=== PATIENT | female | born 2005 | race Caucasian/White ===

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

== ENCOUNTER 2023-01-24 00:13 | Emergency (ER) | payer OTHER, SELFPAY ==
[2023-01-24 00:14] VITALS: BP 122/80; PULSE 99; RESP 20; TEMP 37; O2SAT 100
--- NOTE | 2023-01-24 00:28 | ED.GENADULT ---
HPI - General Adult General Chief complaint: Unspecified Stated complaint: Consitpation Source: patient Mode of arrival: ambulatory Limitations: no limitations History of Present Illness HPI narrative: 17 year old female presents to the Emergency Department complaining of constipation. Patient states she is 7 weeks and has not had bowel movement for 4 days. Feels like she needs to have BM. Unsure what she can take while . Onset (ago): day(s) (4 days since last BM) Location: abdomen (constipation) Relieving factors: none Exacerbating factors: none Associated symptoms: denies other symptoms Treatments prior to arrival: none Related Data Home Medications Medication Instructions Recorded Confirmed Vitamin Plus Low Iron See Rx Instructions .Route .COMPLEX 01/24/23 01/24/23 Zofran 4 mg PO Q6-8H 01/24/23 01/24/23 Allergies Allergy/AdvReac Type Severity Reaction Status Date / Time No Known Allergies Allergy Verified 01/24/23 00:27 Review of Systems Review of Systems: All systems reviewed & are unremarkable except as noted in HPI and below Constitutional: Constitutional: Reports as per HPI and Reports no additional constitutional complaints Eyes: Eyes: Reports as per HPI and Reports no additional eye complaints ENT: Reports system reviewed and no additional complaints, except as documented and Reports as per HPI Cardiovascular: Cardiovascular: Reports as per HPI and Reports no additional cardiovascular complaints Respiratory: Respiratory: Reports as per HPI and Reports no additional respiratory complaints Gastrointestinal: Gastrointestinal: Reports as per HPI, Reports no additional gastrointestinal complaints, Reports constipation, Denies nausea and Denies vomiting Genitourinary: Genitourinary: Reports no additional female genitourinary complaints and Reports as per HPI Musculoskeletal: Musculoskeletal: Reports no additional musculoskeletal complaints and Reports as per HPI Integumentary/Breasts: Skin/Breast: Reports system reviewed and no additional complaints, except as docu and Reports as per HPI Neurologic: Reports system reviewed and no additional complaints, except as documented and Reports as per HPI Psychiatric: Psychiatric: Reports no additional psychiatric complaints and Reports as per HPI Endocrine: Endocrine: Reports no additional endocrine complaints and Reports as per HPI Hematologic/Lymphatic: Hematologic/Lymphatic: Reports no additional hematologic/lymphatic complaints and Reports as per HPI Allergic/Immunologic: Allergic/Immunologic: Reports no additional allergic/immunologic complaints and Reports as per HPI [facility] Past Medical History Medical History Bipolar 1 disorder Depression Finger pain, left Patellar instability of right knee Pharyngitis URI (upper respiratory infection) Surgical History Surgical History No history of previous surgery Family History Family History Mother No problems noted. Social History Social History Smoking status: Current every day smoker Tobacco type: e-cigarettes/vaping Alcohol intake: never Substance use: never Lack of Transportation: No Lack of Food: Never True Current Housing: I Have Housing Concerned About Future Housing: No Difficulty Paying Gas/Electric Bills: No Difficulty Paying for Meds: No Currently Unemployed: No Education: Grade School Difficulty w/ Childcare or Family Care: No Gender identity (if verbalized by the patient): Female Exam Const: General: cooperative, healthy appearing, comfortable, no acute distress, well developed and alert; No acute distress Nutritional Appearance: average body habitus Orientation/consciousness: patient oriented x3 Limitations:
[2023-01-24] MEDS: SENNA/DOCUSATE SODIUM TABLET 1 TAB PO (00:53)
[2023-01-24 00:58] VITALS: PULSE 78; RESP 18; O2SAT 98
== END 2023-01-24 00:59 | disposition home or self-care (01) ==
PROVIDERS: Emergency Provider Emergency Medicine; PCP Family Medicine
DX: O26.891 Other specified pregnancy related conditions, first trimester (principal); K59.00 Constipation, unspecified; O99.331 Smoking (tobacco) complicating pregnancy, first trimester; F17.210 Nicotine dependence, cigarettes, uncomplicated; Z3A.01 Less than 8 weeks gestation of pregnancy
CPT/HCPCS: 99282; A9270

== ENCOUNTER 2023-01-28 13:12 | Emergency (ER) | payer OTHER, SELFPAY ==
--- NOTE | ~2023-01-28 | US_ITS ---
EXAMINATION: US OB <= 14 weeks fetus DATE: 01/28/2023 14:09 INDICATION: Abdominal cramping during TECHNIQUE: Real-time pelvic ultrasound utilizing both a transvaginal and transabdominal probe was pe rformed. The interpreting radiologist was not present for the study. COMPARISON: 09/03/2022 FINDINGS: The uterus measures 9.8 x 6.2 x 7.1 cm. There is an intrauterine gestational sac. A yolk sac and fet al pole are identified. The crown rump length measures 2.1, which correlates with an estimated gestat ional age of 8 weeks and 5 days. heart motion is identified measuring 180 beats per minute (bpm ) by M-mode Doppler. The right ovary measures 3.3 x 2.9 x 2.7 cm. The left ovary is not visualized. There is no free fluid in the pelvis. IMPRESSION: 1. Single living fetus with heart rate of 180 bpm. 2. Gestational age by ultrasound of 8 weeks 5 day(s) +/- 4 day(s) with ultrasound estimated date of delivery (THOM) of 09/04/2023. Reviewed, dictated and finalized at location B. IMPRESSION: 1. Single living fetus with heart rate of 180 bpm. 2. Gestational age by ultrasound of 8 weeks 5 day(s) +/- 4 day(s) with ultraso und estimated date of delivery (THOM) of 09/04/2023.
[2023-01-28 13:12] VITALS: BP 123/70; PULSE 103; RESP 16; TEMP 36.6; O2SAT 100
--- NOTE | 2023-01-28 13:26 | ED.GENADULT ---
HPI - General Adult General Chief complaint: OB/Uterine Contractions Stated complaint: 8wks and cramping Time Seen by Provider: 01/28/23 13:21 History of Present Illness HPI narrative: The patient is a 17-year-old , last menstrual period December 03, 2022, expected due date 09/11/2023, currently 8 weeks . She has visited with her OB provider and has had an OB ultrasound approximately 2 weeks ago that was unremarkable per her report. She presents with onset of abdominal cramping in the lower abdomen since 9:30 a.m. today, not radiating elsewhere in the abdomen, constant in nature, waxing waning in intensity, associated with occasional sharp pains as well. She does have hyperemesis gravidarum but mostly the Zofran take care of her symptoms. She has nausea, but has not vomited in 1 weeks time. Has urinary urgency and frequency with this , increasing over the last few weeks. No dysuria or hematuria. No vaginal discharge or bleeding. No chest pain or URI symptoms. No fevers or chills or diaphoresis. History of bipolar affective disorder Related Data Home Medications Medication Instructions Recorded Confirmed Vitamin Plus Low Iron See Rx Instructions .Route .COMPLEX 01/24/23 01/28/23 Zofran 4 mg PO Q6-8H 01/24/23 01/28/23 Allergies Allergy/AdvReac Type Severity Reaction Status Date / Time No Known Allergies Allergy Verified 01/24/23 00:27 Review of Systems Review of Systems: All systems reviewed & are unremarkable except as noted in HPI and below Constitutional: Constitutional: Reports as per HPI, Reports no additional constitutional complaints, Denies chills, Denies excessive sweating, Denies fatigue, Denies fever(s), Denies headache(s) and Denies weakness Eyes: Eyes: Reports as per HPI, Reports no additional eye complaints, Denies change in vision and Denies photophobia ENT: Reports system reviewed and no additional complaints, except as documented, Reports as per HPI, Denies dysphagia, Denies vertigo, Denies dizziness, Denies headache(s), Denies lip swelling, Denies nasal congestion, Denies sore throat, Denies throat swelling and Denies tongue swelling Cardiovascular: Cardiovascular: Reports as per HPI, Reports no additional cardiovascular complaints, Denies chest pain, Denies syncope, Denies rapid heart rate and Denies dyspnea Respiratory: Respiratory: Reports as per HPI, Reports no additional respiratory complaints, Denies chest congestion, Denies cough, Denies dyspnea and Denies wheezing Gastrointestinal: Gastrointestinal: Reports as per HPI, Reports no additional gastrointestinal complaints, Reports abdominal pain (abdominal cramping), Denies constipation, Denies dysphagia, Denies diarrhea, Reports nausea and Reports vomiting (but none in one week) Genitourinary: Genitourinary: Reports as per HPI, Denies hematuria, Denies urinary frequency, Reports nocturia, Denies dysuria, Denies urinary incontinence and Reports urinary urgency Musculoskeletal: Musculoskeletal: Reports no additional musculoskeletal complaints, Denies back pain, Denies myalgias, Denies arthralgias, Denies joint swelling and Denies numbness Integumentary/Breasts: Skin/Breast: Reports system reviewed and no additional complaints, except as docu, Denies pruritus, Denies erythema, Denies rash and Denies skin ulcer Neurologic: Reports system reviewed and no additional complaints, except as documented, Reports as per HPI, Denies confusion, Denies vertigo, Denies dizziness, Denies syncope, Denies headache(s), Denies focal weakness, Denies numbness and Denies weakness Psychiatric: Psychiatric: Reports as per HPI, Denies anxiety, Denies confusion, Denies depression, Denies homicidal ideation and Denies suicidal ideation Endocrine: Endocrine: Reports no additional endocrine complaints, Denies excessive sweating, Denies fatigue, Denies polydipsia and Denies polyuria Hematologic/Lymphatic: Hematologic/Lymphatic: Reports no
[2023-01-28 13:45] LABS: Basophils Absolute Auto 0.02 K/mm3 (0.00-0.10); Basophils Percent Auto 0.3 % (0.0-1.0); Eosinophils Absolute Auto 0.08 K/mm3 (0.02-0.50); Eosinophils Percent Auto 1.3 % (1.0-6.0); Hematocrit 35.4 % (35.0-49.0); Hemoglobin 11.9 g/dL (12.0-15.0); Immature Granulocyte Absolute 0.02 K/mm3 (0.00-0.00); Immature Granulocyte Percent A 0.3 % (0.0-0.0); Lymphocytes Absolute Auto 1.19 K/mm3 (1.10-4.50); Lymphocytes Percent Auto 18.6 % (18.0-42.0); Mean Corpuscular HGB Conc 33.6 g/dL (32.0-36.0); Mean Corpuscular Volume 83.3 fL (78.0-102.0); Monocytes Absolute Auto 0.61 K/mm3 (0.10-0.90); Monocytes Percent Auto 9.5 % (2.0-11.0); Neutrophils Absolute Auto 4.5 K/mm3 (1.7-7.2); Platelet Count Result 243 K/mm3 (150-420); Red Blood Count 4.25 M/mm3 (4.20-5.40); Red Cell Distribution Width 12.2 % (11.6-14.4); White Blood Count 6.4 K/mm3 (4.8-10.8)
[2023-01-28 13:52] LABS: Appearance Urine Clear (Clear); Bilirubin Urine Negative (Negative); Blood Urine 1+ (Negative); Color Urine Light Yellow (Yellow); Glucose Urine UA Negative (Negative); Ketones Urine Negative (Negative); Leukocyte Esterase Ur Negative LEU/UL (Negative); Nitrate Urine Negative (Negative); Protein Urine Negative (Negative); Specific Grav Ur <= 1.005 (1.010-1.020); Urobilinogen Urine 0.2 mg/dL (0.2-1.0)
[2023-01-28 13:58] LABS: Add Urine Microscopic? YES; Bacteria Urine 1+ /hpf; Squamous Epithelial Cell Urine Few /hpf (Few); WBC Urine 0-3 /hpf (0-3)
[2023-01-28 13:59] LABS: Amphetamine Screen Urine Negative (Negative); Barbiturate Screen Urine Negative (Negative); Benzodiazepines Screen Urine Negative (Negative); Cannabinoid Screen Urine Negative (Negative); Cocaine Screen Urine Negative (Negative); Methadone Screen Urine Negative (Negative); Opiate Screen Urine Negative (Negative); Phencyclidine Screen Urine Negative (Negative)
[2023-01-28 14:26] LABS: Alanine Aminotransferase 50 U/L (14-59); Albumin Level 3.4 g/dL (3.4-5.0); Alkaline Phosphatase 74 U/L (50-130); Amylase 49 U/L (25-115); Anion Gap 9 mmol/L (8-16); Aspartate Amino Transferase 27 U/L (15-37); Bilirubin,Total 0.2 mg/dL (0.00-1.00); Blood Urea Nitrogen 6 mg/dL (7-18); Calcium 8.6 mg/dL (8.5-10.1); Carbon Dioxide 27 mmol/L (21-32); Chloride 103 mmol/L (98-108); Estimated CRCL calculation 120 ml/min; Estimated Glomerular Filt Rate > 60; Glucose 88 mg/dL (70-99); Lipase 20 U/L (16-77); Magnesium 1.8 mg/dL (1.8-2.4); Osmolality Calculated 284 mOsm/kg (285-295); Potassium 3.5 mmol/L (3.5-5.1); Sodium 139 mmol/L (136-145)
[2023-01-28 14:50] VITALS: BP 113/60; PULSE 87; RESP 20; TEMP 36.6; O2SAT 99
== END 2023-01-28 14:53 | disposition home or self-care (01) ==
PROVIDERS: Emergency Provider Emergency Medicine; PCP Family Medicine
DX: O26.891 Other specified pregnancy related conditions, first trimester (principal); R10.30 Lower abdominal pain, unspecified; O99.331 Smoking (tobacco) complicating pregnancy, first trimester; F17.290 Nicotine dependence, other tobacco product, uncomplicated; Z3A.08 8 weeks gestation of pregnancy
CPT/HCPCS: 36415; 76801; 80053; 80307; 81001; 82150; 83690; 83735; 84702; 85025; 86900; 86901; 99284

== ENCOUNTER 2023-02-27 21:54 | Emergency (ER) | payer OTHER, SELFPAY ==
[2023-02-27 22:01] VITALS: BP 110/67; PULSE 90; RESP 16; TEMP 36.8; O2SAT 100
[2023-02-27 22:51] VITALS: BP 102/73; PULSE 79; RESP 15; TEMP 36.9; O2SAT 98
[2023-02-27 23:56] VITALS: BP 107/57; PULSE 80; RESP 16; O2SAT 100
[2023-02-28 00:36] LABS: Appearance Urine Cloudy (Clear); Bacteria Urine 2+ /hpf; Bilirubin Urine Negative (Negative); Blood Urine 1+ (Negative); Color Urine Yellow (Yellow); Glucose Urine UA Negative (Negative); Ketones Urine Negative (Negative); Leukocyte Esterase Ur Negative LEU/UL (Negative); Nitrate Urine Negative (Negative); Protein Urine Trace mg/dL (Negative); Specific Grav Ur 1.023 (1.001-1.035); Squamous Epithelial Cell Urine Few /hpf (Few); pH Urine 5.5 (5.0-9.0)
--- NOTE | 2023-02-28 00:36 | ED.ABDPAIN ---
HPI - Abdominal Pain General Chief Complaint: Abdominal Pain Stated Complaint: 13 weeks [id number] bleeding Time Seen by Provider: 02/27/23 23:10 Source: patient Mode of arrival: ambulatory Limitations: no limitations History of Present Illness HPI narrative: Patient is a 17 y/o female who presents to the ED with report of lower abdominal cramping. Patient is currently 13 weeks gestation. She has had confirmed IUP. She sees an [employer] with [facility] in [place], [place]. She reports having intermittent dull cramping lower abdominal pain over the last several days with sharp stabbing pains. Pains worse with movement and standing. She has been taking Tylenol intermittently. She has had occasional nausea, but denies vomiting. Denies any fever, dysuria, hematuria, vaginal bleeding. Related Data Home Medications Medication Instructions Recorded Confirmed Vitamin Plus Low Iron See Rx Instructions .Route .COMPLEX 01/24/23 02/11/23 Zofran 4 mg PO Q6-8H 01/24/23 02/11/23 Allergies Allergy/AdvReac Type Severity Reaction Status Date / Time No Known Allergies Allergy Verified 02/27/23 22:51 Review of Systems Review of Systems: CONSTITUTIONAL: Denies fever, chills, or sweats. CARDIOVASCULAR: Denies chest pain. RESPIRATORY: Denies dyspnea. GASTROINTESTINAL: See HPI. GENITOURINARY: See HPI. SKIN: Denies rash or itching. MUSCULOSKELETAL: Denies back pain, joint pain, or myalgia. All systems reviewed & are unremarkable except as noted in HPI and below PMFSH Past Medical History Medical History Bipolar 1 disorder Depression Finger pain, left Patellar instability of right knee Pharyngitis URI (upper respiratory infection) Surgical History Surgical History No history of previous surgery Family History Family History Mother No problems noted. Social History Social History Smoking status: Current every day smoker Tobacco type: e-cigarettes/vaping Alcohol intake: never Substance use: never Lack of Transportation: No Lack of Food: Never True Current Housing: I Have Housing Concerned About Future Housing: No Difficulty Paying Gas/Electric Bills: No Difficulty Paying for Meds: No Currently Unemployed: No Education: Grade School Difficulty w/ Childcare or Family Care: No Gender identity (if verbalized by the patient): Female Exam Narrative: GENERAL: Well appearing, obese with BMI of 30.7, non-toxic, in no acute distress. HEAD: Normocephalic, atraumatic. NECK: Supple. No adenopathy, no masses. RESPIRATORY: Airway patent, respirations nonlabored. Clear to auscultation bilaterally, no rales, rhonchi, wheezing. CARDIOVASCULAR: Regular rate and rhythm without murmurs, rubs, or gallops. Peripheral pulses 2+ and equal bilaterally. ABDOMINAL: Soft, very mild diffuse tenderness throughout abdomen, no significant focal tenderness. Nondistended, no hepatosplenomegaly. Normoactive BS. MUSCULOSKELETAL: Moves all extremities. Strength/ROM intact without gross deformities. SKIN: Warm, dry, normal color. No rashes. NEURO: A&O X3. Speech clear. Cranial nerves II-XII grossly intact. Steady gait. No ataxic movements. PSYCHIATRIC: Appropriate mood and affect. Normal interaction. Course Vital Signs Vital signs: Vital Signs Temperature 98.2 F 02/27/23 22:01 Pulse Rate 90 02/27/23 22:01 Respiratory Rate 16 02/27/23 22:01 Blood Pressure 110/67 02/27/23 22:01 Pulse Oximetry 100 02/27/23 22:01 Oxygen Delivery Room Air 02/27/23 22:01 Temperature 98.4 F 02/27/23 22:51 Pulse Rate 81 02/28/23 01:06 Respiratory Rate 16 02/28/23 01:06 Blood Pressure 107/57 L 02/27/23 23:56 Pulse Oximetry 100
[2023-02-28 00:39] LABS: Need Manual Microscopic Reviewed
[2023-02-28 00:43] LABS: Non Pathogenic Casts Not Present
[2023-02-28 00:46] LABS: Add Urine Microscopic? YES
[2023-02-28] MEDS: CEPHALEXIN 500 MG CAPSULE PO (01:04)
[2023-02-28 01:06] VITALS: PULSE 81; RESP 16; O2SAT 100
== END 2023-02-28 01:09 | disposition home or self-care (01) ==
PROVIDERS: Emergency Provider Physician Assistant; PCP Family Medicine
DX: O26.891 Other specified pregnancy related conditions, first trimester (principal); R10.30 Lower abdominal pain, unspecified; R82.71 Bacteriuria; O99.331 Smoking (tobacco) complicating pregnancy, first trimester; F17.290 Nicotine dependence, other tobacco product, uncomplicated; Z3A.13 13 weeks gestation of pregnancy
CPT/HCPCS: 81001; 87086; 99283; A9270

== ENCOUNTER 2024-08-28 17:44 | Emergency (ER) | payer OTHER, SELFPAY ==
[2024-08-28 17:52] VITALS: BP 112/66; PULSE 86; RESP 16; TEMP 36.6; O2SAT 100
--- NOTE | 2024-08-28 19:46 | ED.EAR ---
HPI - Ear Problem General Chief complaint: Ear Stated complaint: ear infection Time Seen by Provider: 08/28/24 17:56 Source: patient, RN notes reviewed and old records reviewed Mode of arrival: ambulatory Limitations: no limitations History of Present Illness HPI Narrative: 19-year-old female to Express Care for complaint of right ear pain that began yesterday. Patient endorses history of chronic ear infections And cerumen impaction. Patient does not currently have PCP or ENT. Patient denies fever, allergies, recent illness. Patient able to tolerate fluids by mouth. Patient resting comfortably in exam room in no acute distress. Related Data Home Medications Medication Instructions Recorded Confirmed levonorgestrel 14 mcg/24 hr (up to 1 device intrauterine ONCE 08/28/24 08/28/24 3 yrs) 13.5 mg intrauterine device (Nica) Allergies Allergy/AdvReac Type Severity Reaction Status Date / Time No Known Allergies Allergy Verified 08/28/24 18:13 Review of Systems Review of Systems: All systems reviewed & are unremarkable except as noted in HPI and below Constitutional: Constitutional: Reports no additional constitutional complaints Eyes: Eyes: Reports no additional eye complaints ENT: Reports as per HPI, Denies Normal hearing present ( right) and Reports otalgia ( right) Cardiovascular: Cardiovascular: Reports no additional cardiovascular complaints, Denies chest pain and Denies dyspnea Respiratory: Respiratory: Reports no additional respiratory complaints, Denies cough and Denies dyspnea Musculoskeletal: Musculoskeletal: Reports no additional musculoskeletal complaints Neurologic: Reports system reviewed and no additional complaints, except as documented Psychiatric: Psychiatric: Reports no additional psychiatric complaints [facility] Past Medical History Medical History Bipolar 1 disorder Depression Finger pain, left Patellar instability of right knee Pharyngitis URI (upper respiratory infection) Surgical History Surgical History No history of previous surgery Family History Family History Mother No problems noted. Social History Social History Smoking status: Current every day smoker Tobacco type: e-cigarettes/vaping Alcohol intake: never Substance use: never Lack of Transportation: No Lack of Food: Never True Current Housing: I Have Housing Concerned About Future Housing: No Difficulty Paying Gas/Electric Bills: No Difficulty Paying for Meds: No Currently Unemployed: No Education: Grade School Difficulty w/ Childcare or Family Care: No Gender identity (if verbalized by the patient): Female Comments At the time of my signature, I reviewed and agree with the nursing past medical, surgical, social, and family history. There is no relevant family history pertinent to the patient complaint. Exam Const: General: cooperative, healthy appearing, comfortable, no acute distress, alert and well nourished Nutritional Appearance: well nourished Orientation/consciousness: patient oriented x3 Limitations: no limitations HENMT: Head: normal to inspection Ears: external ears normal, Abnormal EAC present cerumen impaction bilateral and EAC tenderness bilateral and TM abnormal erythematous on the right and with loss of landmarks on the right Face/Nose/Sinus: Normal external nose present, Normal nares present, normal facial exam, No erythema and No edema Face and sinus: normal facial exam, no erythema and no edema Mouth: Yes Normal oral and palatal mucosa present Eyes: General: appearance normal, both eyes and all related structures Neck: Neck: normal visual inspection, full ROM and no meningeal signs Lymphatic: no lymphadenopathy noted and no lymphedema noted Chest: Chest palpation & inspection: normal inspection of the chest Resp: Effort & Inspection: normal respiratory effort and able to speak in complete sentences Auscultation: clear to auscultation bilaterally Cardio: Jugular venous distension: no JVD Rate: regular rate Rhythm: regular rhythm Back/Spine/Pelvis: Cervical Spine: cervical ROM normal Skin: General skin exam: normal color, no rashes or lesions noted and turgor normal Neuro: General: patient oriented x3, gait normal, moves all extremities and no meningeal signs Speech: normal speech Gait exam (Neuro): Normal gait present Extrem: General: normal to inspection, full ROM and capillary refill normal Psych: Appearance: grossly normal and well kempt Course Course Emergency Course: Some parts of this dictation were generated by voice recognition software and may contain typographical and/or grammatical inaccuracies. Level of Care: Express Care Visit Vital Signs Vital signs: Vital Signs Temperature 36.6 C 08/28/24 17:52 Pulse Rate 86 08/28/24 17:52 Respiratory Rate 16 08/28/24 17:52 Blood Pressure 112/66 08/28/24 17:52 Pulse Oximetry 100 08/28/24 17:52 Oxygen Delivery Room Air 08/28/24 17:52 Temperature 36.6 C 08/28/24 17:52 Pulse Rate 86 08/28/24 17:52 Respiratory Rate 16 08/28/24 17:52 Blood Pressure 112/66 08/28/24 17:52 Pulse Oximetry 100 08/28/24 17:52 Oxygen Delivery Room Air 08/28/24 17:52 reviewed Procedures Ear Wax Removal Both Ears: Ear Wax Removal Date: 08/28/24 TM Examination: TM(s) erythematous ( right) Ear Canal Exam: bleeding Noted ( left) Patient Tolerated Procedure: well Complications: pain and bleeding Technique: ear canal irrigated and ear canal curetted Medical Decision Making MDM Narrative Medical decision making narrative: 19-year-old female to Express Care for complaint of right ear pain that began yesterday. Patient endorses history of chronic ear infections And cerumen impaction. Patient does not currently have PCP or ENT. Patient denies fever, allergies, recent illness. Patient able to tolerate fluids by mouth. Patient resting comfortably in exam room in no acute distress. Patient is sitting comfortably in exam room nontoxic in appearance. On exam, bilateral cerumen impaction. removal successful with curette and irrigation without complication. Right TM erythematous, dull, loss of landmarks. Consistent with right otitis media Patient appropriate for outpatient treatment and follow-up. Discharge instructions reviewed with patient, as well as provided in writing per nursing staff. The instructions also include specific and strict return/GO TO THE ER as well as f/u information. All questions have been answered, and the patient deny any further questions with discharge and discharge plan. Some parts of this dictation were generated by voice recognition software and may contain typographical and/or grammatical inaccuracies. Differential Diagnosis Differential Diagnosis: cerumen impaction, excessive cerumen, ruptured tympanic membrane, otitis media, otitis externa, upper respiratory infection, sinusitis, foreign body ear Vital Signs Vital Signs: Vital Signs Temperature 36.6 C 08/28/24 17:52 Pulse Rate 86 08/28/24 17:52 Respiratory Rate 16 08/28/24 17:52 Blood Pressure 112/66 08/28/24 17:52 Pulse Oximetry 100 08/28/24 17:52 Oxygen Delivery Room Air 08/28/24 17:52 Temperature 36.6 C 08/28/24 17:52 Pulse Rate 86 08/28/24 17:52 Respiratory Rate 16 08/28/24 17:52 Blood Pressure 112/66 08/28/24 17:52 Pulse Oximetry 100 08/28/24 17:52 Oxygen Delivery Room Air 08/28/24 17:52 Discharge Plan Discharge Clinical Impression: Bilateral impacted cerumen, Acute right otitis media Patient Disposition: Home, Self-Care Condition: Stable Instructions: Antibiotic Form Additional Instructions: alternate Tylenol and ibuprofen as needed for pain please finish entire course of antibiotic treatment for new or worsening symptoms please go directly to the emergency department please use attached ENT referral information if needed Prescriptions: New ciprofloxacin-dexamethasone 0.3-0.1 % drops,suspension 4 drp EACH EAR Q12H 7 Days Qty: 7.5 0RF amoxicillin 875 mg tablet 875 mg PO Q12H Qty: 20 0RF No Action Nica 14 mcg/24 hr (3 yrs) 13.5 mg Intrauterine Device 1 device INTRAUTERINE ONCE Rx Instructions: as a single dose Follow-up/Referrals: Milo Calloway MD [Physician] - PHYSICIAN,MEDICAL LABORATORY ASSISTANT [Primary Care Provider] - Stand Alone Forms: Work/School Release IP
== END 2024-08-28 18:49 | disposition home or self-care (01) ==
PROVIDERS: Emergency Provider Nurse Practitioner Family
DX: H61.23 Impacted cerumen, bilateral (principal); H66.91 Otitis media, unspecified, right ear; F17.290 Nicotine dependence, other tobacco product, uncomplicated
CPT/HCPCS: 69210; 99213; A9270; G0463

== ENCOUNTER 2024-09-18 16:30 | Emergency (ER) | payer OTHER, SELFPAY ==
[2024-09-18 16:56] VITALS: BP 110/92; PULSE 83; RESP 16; TEMP 36.8; O2SAT 100
--- NOTE | 2024-09-18 17:22 | ED_ITS ---
HPI - URI/Sore Throat General Chief Complaint: Upper Respiratory Infection Stated Complaint: cough Time Seen by Provider: 09/18/24 17:22 Source: patient Mode of arrival: ambulatory Limitations: no limitations History of Present Illness HPI Narrative: 19-year-old female presents with complaint of chest congestion, cough, low- grade fever for 3 days. 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 No chest pain or shortness of breath. All systems reviewed and negative except as noted above. Related Data Home Medications Medication Instructions Recorded Confirmed levonorgestrel 14 mcg/24 hr (up to 1 device intrauterine ONCE 08/28/24 09/18/24 3 yrs) 13.5 mg intrauterine device (Nica) Allergies Allergy/AdvReac Type Severity Reaction Status Date / Time No Known Allergies Allergy Verified 09/18/24 17:05 Review of Systems Review of Systems: CONSTITUTIONAL: Reports fever, chills, or sweats. EYES: Denies visual changes, redness, or discharge. ENT: Denies rhinorrhea, congestion, sore throat, or otalgia. CARDIOVASCULAR: Denies chest pain, palpitations, or edema. RESPIRATORY: reports cough, chest congestion. Denies dyspnea. GASTROINTESTINAL: Denies abdominal pain, nausea, vomiting, or diarrhea. GENITOURINARY: Denies dysuria or hematuria. SKIN: Denies rash or itching. MUSCULOSKELETAL: Denies back pain, joint pain, or myalgia. NEUROLOGIC: Denies headache, numbness, or weakness. PSYCHIATRIC: Denies anxiety or depression. All other systems reviewed are negative, except as documented in HPI. [facility] Past Medical History Medical History Bipolar 1 disorder Depression Finger pain, left Patellar instability of right knee Pharyngitis URI (upper respiratory infection) Surgical History Surgical History No history of previous surgery Family History Family History Mother No problems noted. Social History Social History Smoking status: Current every day smoker Tobacco type: e-cigarettes/vaping Alcohol intake: never Substance use: never Lack of Transportation: No Lack of Food: Never True Current Housing: I Have Housing Concerned About Future Housing: No Difficulty Paying Gas/Electric Bills: No Difficulty Paying for Meds: No Currently Unemployed: No Education: Grade School Difficulty w/ Childcare or Family Care: No Gender identity (if verbalized by the patient): Female Comments At time of signature, agree with nursing past medical, surgical, social and family history. There is no relevant family history pertinent to the presenting complaint. Exam Narrative: GENERAL: This is a well-nourished, well-developed patient, in no apparent distress. HEAD: normocephalic, atraumatic. EYES: PERRL. Sclera clear/white. Vision is grossly intact. EARS: External ears normal, auditory canals clear and without drainage, TMs normal without perforation. Hearing grossly intact. NOSE: External nose normal with no obvious nasal discharge, nares without redness, no rhinorrhea. THROAT: Mucous membranes moist, posterior pharynx clear. NECK: Neck supple, non-tender without lymphadenopathy, masses or thyromegaly. CARDIOVASCULAR: Regular rate and rhythm without murmurs, gallops, or rubs. RESPIRATORY: rhonchi to right lower lung field otherwise clear. Breath sounds equal bilaterally. No wheezes, rales SKIN: warm, Dry, intact with no suspicious lesions or rash, good texture and turgor. NEURO: awake, alert, and oriented to person, place and time. There were no obvious focal neurologic abnormalities. EXTREMITIES: No joint tenderness, effusion, or edema noted. No calf tenderness. Negative Homans sign bilaterally. BACK: Nontender without deformity. No CVA tenderness. Course Course Level of Care: Express Care Visit Vital Signs Vital signs: Vital Signs Temperature 36.8 C 09/18/24 16:56 Pulse Rate 83 09/18/24 16:56 Respiratory Rate 16 09/18/24 16:56 Blood Pressure 110/92 H 09/18/24 16:56 Pulse Oximetry 100 09/18/24 16:56 Oxygen Delivery Room Air 09/18/24 16:56 Temperature 36.8 C 09/18/24 16:56 Pulse Rate 83 09/18/24 16:56 Respiratory Rate 16 09/18/24 16:56 Blood Pressure 110/92 H 09/18/24 16:56 Pulse Oximetry 100 09/18/24 16:56 Oxygen Delivery Room Air 09/18/24 16:56 Reviewed MDM - URI/Sore Throat MDM Narrative Medical decision making narrative: will treat patient for pneumonia due to patient's pneumonia exposure, exam findings. Patient is nontoxic. SpO2 100% room air. Patient is aware of diagnosis, understands and agrees to treatment plan. Anticipatory guidance given. Patient agrees to follow-up as directed and is aware of reasons to seek care at the emergency department. Portions of this record may have been created with voice recognition software Discharge Plan Discharge Clinical Impression: Upper respiratory infection, Exposure to pneumonia Patient Disposition: Home, Self-Care Condition: Stable Instructions: Antibiotic Form, Pneumonia (ED) Additional Instructions: take medications as prescribed. Take ibuprofen or Tylenol every 6-8 hours as needed for pain and fever. Drink at least 64 oz of water a day. Follow-up with your doctor if symptoms are not improving. Prescriptions: New azithromycin 250 mg tablet See Rx Instructions .ROUTE .COMPLEX Qty: 6 0RF Rx Instructions: For 250 mg dose pack: take 500 mg today (day 1), then 250 mg for 4 days (days 2-5) benzonatate 200 mg capsule 200 mg PO TID PRN (Reason: cough) Qty: 20 0RF guaifenesin [Mucinex] 600 mg tablet extended release 12hr 600 mg PO BID 10 Days Qty: 20 0RF No Action Nica 14 mcg/24 hr (3 yrs) 13.5 mg Intrauterine Device 1 device INTRAUTERINE ONCE Rx Instructions: as a single dose Follow-up/Referrals: PHYSICIAN,SECURITY SYSTEMS INSTALLER [Primary Care Provider] - Stand Alone Forms: Work/School Release IP Time of Disposition: 17:28
== END 2024-09-18 17:31 | disposition home or self-care (01) ==
PROVIDERS: Emergency Provider Nurse Practitioner Family
DX: J06.9 Acute upper respiratory infection, unspecified (principal); F17.290 Nicotine dependence, other tobacco product, uncomplicated
CPT/HCPCS: 99213; G0463

== ENCOUNTER 2025-02-15 14:17 | Emergency (ER) | payer MEDICAID, SELFPAY ==
[2025-02-15 14:30] VITALS: BP 105/64; PULSE 86; RESP 20; TEMP 36.6; O2SAT 100
--- NOTE | 2025-02-15 14:41 | ED_ITS ---
HPI - Ear Problem General Chief complaint: Ear Stated complaint: right ear issue Time Seen by Provider: 02/15/25 14:41 Source: patient Mode of arrival: ambulatory Limitations: no limitations History of Present Illness HPI Narrative: 19-year-old female presents with complaint of decreased hearing to right ear canal. Concern for cerumen impaction. No pain. All systems reviewed and negative except as noted above. Related Data Home Medications ?Medication ?Instructions ?Recorded ?Confirmed ?Last Taken ?Type levonorgestrel 14 mcg/24 hr (up to 1 device intrauterine ONCE 08/28/24 09/18/24 Unknown History 3 yrs) 13.5 mg intrauterine device (Nica) Allergies Allergy/AdvReac Type Severity Reaction Status Date / Time No Known Allergies Allergy Verified 02/15/25 14:25 Review of Systems Review of Systems: CONSTITUTIONAL: Denies fever, chills, or sweats. EYES: Denies visual changes, redness, or discharge. ENT: Denies rhinorrhea, congestion, sore throat, or otalgia. Reports decreased hearing to right ear CARDIOVASCULAR: Denies chest pain, palpitations, or edema. RESPIRATORY: Denies cough or dyspnea. GASTROINTESTINAL: Denies abdominal pain, nausea, vomiting, or diarrhea. GENITOURINARY: Denies dysuria or hematuria. SKIN: Denies rash or itching. MUSCULOSKELETAL: Denies back pain, joint pain, or myalgia. NEUROLOGIC: Denies headache, numbness, or weakness. PSYCHIATRIC: Denies anxiety or depression. All other systems reviewed are negative, except as documented in HPI. [facility] Past Medical History Medical History Bipolar 1 disorder Depression Finger pain, left Patellar instability of right knee Pharyngitis URI (upper respiratory infection) Surgical History Surgical History No history of previous surgery Family History Family History Mother No problems noted. Social History Social History Smoking status: Current every day smoker Tobacco type: e-cigarettes/vaping Alcohol intake: never Substance use: never Lack of Transportation: No Lack of Food: Never True Current Housing: I Have Housing Concerned About Future Housing: No Difficulty Paying Gas/Electric Bills: No Difficulty Paying for Meds: No Currently Unemployed: No Education: Grade School Difficulty w/ Childcare or Family Care: No Gender identity (if verbalized by the patient): Female Comments At time of signature, agree with nursing past medical, surgical, social and family history. There is no relevant family history pertinent to the presenting complaint. Exam Narrative: GENERAL: This is a well-nourished, well-developed patient, in no apparent distress. HEAD: normocephalic, atraumatic. EYES: PERRL. Sclera clear/white. Vision is grossly intact. EARS: External ears normal, Left canal normal. Right canal is impacted with soft cerumen, after irrigation TMs normal without perforation. Hearing grossly intact. NOSE: External nose normal with no obvious nasal discharge, nares without redness, no rhinorrhea. NECK: Neck supple, non-tender without lymphadenopathy, masses or thyromegaly. CARDIOVASCULAR: Regular rate and rhythm without murmurs, gallops, or rubs. RESPIRATORY: Clear to auscultation. Breath sounds equal bilaterally. No wheezes, rales, or rhonchi. SKIN: warm, Dry, intact with no suspicious lesions or rash, good texture and turgor. NEURO: awake, alert, and oriented to person, place and time. There were no obvious focal neurologic abnormalities. EXTREMITIES: No joint tenderness, effusion, or edema noted. Course Course Level of Care: Express Care Visit Vital Signs Vital signs: Vital Signs Temperature 36.6 C 02/15/25 14:30 Pulse Rate 86 02/15/25 14:30 Respiratory Rate 20 02/15/25 14:30 Blood Pressure 105/64 02/15/25 14:30 Pulse Oximetry 100 02/15/25 14:30 Oxygen Delivery Room Air 02/15/25 14:30 Temperature 36.6 C 02/15/25 14:30 Pulse Rate 86 02/15/25 14:30 Respiratory Rate 20 02/15/25 14:30 Blood Pressure 105/64 02/15/25 14:30 Pulse Oximetry 100 02/15/25 14:30 Oxygen Delivery Room Air 02/15/25 14:30 reviewed Procedures Ear Wax Removal Right Ear: Ear Wax Removal Date: 02/15/25 Ear Wax Removal Time: 14:30 Cerumenolytic Used: other ( warm water) Results: Re-examined: cerumen removed completely TM Examination: TM(s) intact, normal appearance Ear Canal Exam: bleeding Noted Patient Tolerated Procedure: well Complications: no problems Technique: ear canal irrigated Medical Decision Making MDM Narrative Medical decision making narrative: patient's hearing improved after cerumen irrigation. Please be advised this is a medical document. It is intended for [id number] communication. It is written in medical language and may contain unfamiliar abbreviations or verbiage. Medical documents are intended to carry relevant information, facts as evident, and the clinical opinion of the practitioner at the time of the encounter. This report may have been done utilizing a voice recognition system. Attempts have been made to correct errors. However, there may be uncorrected grammatical, spelling, and recognition errors present. The file time of this note does not necessarily represent the time of service. Vital Signs Vital Signs: Vital Signs Temperature 36.6 C 02/15/25 14:30 Pulse Rate 86 02/15/25 14:30 Respiratory Rate 20 02/15/25 14:30 Blood Pressure 105/64 02/15/25 14:30 Pulse Oximetry 100 02/15/25 14:30 Oxygen Delivery Room Air 02/15/25 14:30 Temperature 36.6 C 02/15/25 14:30 Pulse Rate 86 02/15/25 14:30 Respiratory Rate 20 02/15/25 14:30 Blood Pressure 105/64 02/15/25 14:30 Pulse Oximetry 100 02/15/25 14:30 Oxygen Delivery Room Air 02/15/25 14:30 Discharge Plan Discharge Clinical Impression: Hearing loss of right ear due to cerumen impaction Patient Disposition: Home Condition: Stable Instructions: General Patient Instructions Additional Instructions: Cerumen was removed from right ear canal today. Patient Language: [place] Prescriptions: No Action Nica 14 mcg/24 hr (3 yrs) 13.5 mg Intrauterine Device 1 device INTRAUTERINE ONCE Rx Instructions: as a single dose Follow-up/Referrals: PHYSICIAN,GRADER MEAT [Primary Care Provider] - Time of Disposition: 14:50
== END 2025-02-15 14:50 | disposition home or self-care (01) ==
PROVIDERS: Emergency Provider Nurse Practitioner Family
DX: H61.21 Impacted cerumen, right ear (principal); F17.290 Nicotine dependence, other tobacco product, uncomplicated
CPT/HCPCS: 69209; 99212; G0463

== ENCOUNTER 2025-10-20 09:56 | Emergency (ER) | payer MEDICAID, SELFPAY ==
--- NOTE | 2025-10-20 09:57 | ED_ITS ---
HPI - Ear Problem General Chief complaint: Ear Stated complaint: can't hear out of ears Time Seen by Provider: 10/20/25 09:57 Source: patient Mode of arrival: ambulatory Limitations: no limitations History of Present Illness HPI Narrative: patient is a 20-year-old female who presents with bilateral pain, pressure, decreased hearing since yesterday. Patient try deeper ox and that may left ear worse. Denies any fever, chills, nausea, vomiting, diarrhea, congestion, sore throat, cough. Patient has history of ear infections. MD Complaint: ear pain Related Data Home Medications ?Medication ?Instructions ?Recorded ?Confirmed ?Last Taken ?Type levonorgestrel 14 mcg/24 hr (up to 1 device intrauteri ne ONCE 08/28/24 09/18/24 Unknown History 3 yrs) 13.5 mg intrauterine device (Nica) aripiprazole 2 mg tablet mg 10/20/25 Unknown History celecoxib 200 mg capsule mg 10/20/25 Unknown History Allergies Allergy/AdvReac Type Severity Reaction Status Date / Time No Known Allergies Allergy Verified 10/20/25 10:19 Review of Systems Review of Systems: All systems reviewed & are unremarkable except as noted in HPI and below Constitutional: Constitutional: Denies body ache(s), Denies chills, Denies fever(s), Denies headache(s) and Denies malaise Eyes: Eyes: Denies blurry vision, Denies eye discharge and Denies irritation ENT: Reports otalgia, Denies headache(s), Reports hearing loss, Denies nasal congestion, Denies nasal discharge and Denies sore throat Cardiovascular: Cardiovascular: Denies chest pain, Denies edema, Denies palpitations and Denies dyspnea on exertion Respiratory: Respiratory: Denies cough and Denies dyspnea on exertion Gastrointestinal: Gastrointestinal: Denies abdominal pain, Denies diarrhea, Denies nausea and Denies vomiting Musculoskeletal: Musculoskeletal: Denies back pain, Denies arthralgias and Denies muscle weakness Integumentary/Breasts: Skin/Breast: Denies pruritus and Denies rash Neurologic: Denies headache(s) Psychiatric: Psychiatric: Reports no additional psychiatric complaints Endocrine: Endocrine: Denies palpitations PMFSH Past Medical History Medical History Pharyngitis URI (upper respiratory infection) Finger pain, left Patellar instability of right knee Depression Bipolar 1 disorder Surgical History Surgical History No history of previous surgery Family History Family History Mother No problems noted. Social History Social History Smoking status: Current every day smoker Tobacco type: e-cigarettes/vaping Alcohol intake: never Substance use: never Lack of Transportation: No Lack of Food: Never True Current Housing: I Have Housing Concerned About Future Housing: No Difficulty Paying Gas/Electric Bills: No Difficulty Paying for Meds: No Currently Unemployed: No Education: Grade School Difficulty w/ Childcare or Family Care: No Gender identity (if verbalized by the patient): Female Comments At time of signature, agree with nursing past medical, surgical, social and family history. There is no relevant family history pertinent to the presenting complaint? Exam Const: General: cooperative, healthy appearing, no acute distress and well nourished Nutritional Appearance: well nourished Orientation/consciousness: patient oriented x3 Limitations: no limitations HENMT: Head: normal to inspection, normocephalic and atraumatic Ears: hearing grossly normal bilaterally, EAC's normal, no periauricular adenopathy and TM abnormal obstructed by cerumen on the left Face/Nose/Sinus: Normal external nose present, Normal nares present, Normal nasal mucous membranes and turbinates present, No nasal discharge present, normal facial exam and sinuses nontender Face and sinus: normal facial exam and sinuses nontender Mouth: Yes Normal oral and palatal mucosa present, Yes lip normal, Yes tongue normal and Yes moist mucous membranes Throat: posterior oropharynx normal, tonsils normal and uvula midline Eyes: General: appearance normal, both eyes and all related structures Alignment and Position: alignment normal and position normal Eyelids: eyelids normal Pupils: Equal, round and reactive pupils present EOM: EOMs intact bilaterally Neck: Neck: normal visual inspection, full ROM, no lymphadenopathy and supple Chest: Chest palpation & inspection: normal inspection of the chest Resp: Effort & Inspection: normal respiratory effort and able to speak in complete sentences Auscultation: clear to auscultation bilaterally, no crackles, no rales, no rhonchi and no wheezes Cardio: Rate: regular rate Rhythm: regular rhythm Heart sounds: S1 normal heart sound present and S2 normal heart sound present Skin: General skin exam: normal color and no rashes or lesions noted Neuro: General: patient oriented x3 and moves all extremities Cranial nerves: Yes Equal, round and reactive pupils present Cognition (Neuro): normal cognition Speech: normal speech Gait exam (Neuro): Normal gait present Extrem: General: normal to inspection and full ROM Psych: Appearance: grossly normal and well kempt Mental Status: mental status grossly normal Speech and movement: Normal speech and movement present Course Course Emergency Course: Patient is aware of diagnosis, understands and agrees to treatment plan. Anticipatory guidance given. Patient agrees to follow-up as directed and is aware of reasons to seek care at the emergency department. Portions of this record may have been created with voice recognition software Level of Care: Express Care Visit Procedures Ear Wax Removal Left Ear: Ear Wax Removal Date: 10/20/25 Ear Wax Removal Time: 11:05 Results: Re-examined: cerumen removed completely TM Examination: TM(s) erythematous Ear Canal Exam: atraumatic Patient Tolerated Procedure: well and no complications Complications: no problems Technique: ear canal irrigated Additional Comments: procedure explained to patient. Verbal consent obtained. MDM MDM Narrative Medical decision making narrative: Left ear irrigation. Patient reports immediate relief of symptoms. Will treat with antibiotics for otitis media Pt well hydrated appearing, in no respiratory distress, hemodynamically stable. Recommend supportive care. The patient is stable at time of discharge the clinical impression was discussed and the patient was given the opportunity to ask questions, which were addressed as completely as possible given the information available at present. Anticipatory guidance and return to care precautions were discussed and the importance of primary care follow-up was stressed and encouraged. The patient voiced understanding of the plan, indications to return, and the need for follow-up. Exam findings show no acute concerns or changes Patient is appropriate for outpatient treatment and follow-up. Differential Diagnosis Differential Diagnosis: Differential diagnosis considered: otitis media, otitis externa, otitis effusion, foreign body, cerumen impaction, viral syndrome? Medical Records I have reviewed the following patient records and this information was taken into consideration when formulating the assessment and plan.: previous clinic visits Discharge Plan Discharge Clinical Impression: Otitis media Qualifiers: Otitis media type: suppurative Chronicity: acute Laterality: left Recurrence: non-recurrent Spontaneous tympanic membrane rupture: without spontaneous rupture Qualified Code(s): H66.002 - Acute suppurative otitis media without spontaneous rupture of ear drum, left ear Cerumen impaction Qualifiers: Laterality: left Qualified Code(s): H61.22 - Impacted cerumen, left ear Patient Disposition: Home Condition: Stable Instructions: Ear Infection (GEN) Additional Instructions: Take antibiotics as directed. Recommend antihistamine such as Benadryl at night time and Zyrtec or Domitila during the day until symptoms improve Flonase nasal spray, 1 spray in each nostril once daily until symptoms improve Also, recommend symptomatic treatment includes: rest, fluids, and increase humidity of the air at home. Recommend Acetaminophen as directed on the bottle to reduce fever, pain Please schedule a follow-up visit with your personal physician for further evaluation and treatment within 3-5days. If your symptoms persist, change or worsen significantly before you can contact your personal physician then please, without delay, go to the emergency department for further evaluation. Patient Language: Liberian Prescriptions: New amoxicillin 875 mg tablet 875 mg PO Q12H 7 Days Qty: 14 0RF No Action Nica 14 mcg/24 hr (3 yrs) 13.5 mg Intrauterine Device 1 device INTRAUTERINE ONCE Rx Instructions: as a single dose celecoxib 200 mg capsule Patient Comments: PT STATES NOT TAKING OF 10/21/25 aripiprazole 2 mg tablet Patient Comments: PT STATES NOT TAKING OF 10/21/25 Follow-up/Referrals: Emily,Rafia Wing, STRETCH BOX TENDER [Primary Care Provider, Unknown] - 3 Days Time of Disposition: 11:15
[2025-10-20 10:06] VITALS: BP 124/69; PULSE 97; RESP 20; TEMP 36.7; O2SAT 100
== END 2025-10-20 11:20 | disposition home or self-care (01) ==
PROVIDERS: Emergency Provider Nurse Practitioner Family; PCP Nurse Practitioner Family
DX: H66.002 Acute suppurative otitis media without spontaneous rupture of ear drum, left ear (principal); H61.22 Impacted cerumen, left ear; F17.290 Nicotine dependence, other tobacco product, uncomplicated
CPT/HCPCS: 69209; 99213; A9270; G0463